=== PATIENT | female | born 1995 | race Caucasian/White ===

== ENCOUNTER 2017-02-15 19:30 | Inpatient (IN) | payer BC, OTHER ==
[2017-02-16] MEDS ORDERED: LIDOCAINE HCL 50 ML VIAL PERI PRN (01:56)
[2017-02-16] MEDS ORDERED: RINGER'S SOLUTION,LACTATED 1,000 ML IV ONE (01:56)
[2017-02-16] MEDS: DEXTROSE 5%-LACTATED RINGERS 1,000 ML IV PRN ×2 (04:14→09:24)
[2017-02-16] MEDS ORDERED: BUPIVACAINE HCL/0.9 % NACL/PF 250 ML EP PRN (05:09)
[2017-02-16] MEDS ORDERED: ONDANSETRON HCL/PF 2 MG/ML VIAL IV PRN (05:09)
[2017-02-16] MEDS ORDERED: NALOXONE HCL 1 MG/1 ML SYRG IV PRN (05:09)
[2017-02-16] MEDS ORDERED: BUPIVACAINE HCL/PF 30 ML VIAL EP SCH (05:15)
[2017-02-16] MEDS ORDERED: fentaNYL CITRATE/PF 50 MCG/ML AMPUL IT SCH (05:15)
--- NOTE | 2017-02-16 05:52 | OR ---
Anesthesia Pre Procedure Eval Date of Service: 02/16/17 Pre Procedure Evaluation: Anesthesia Pre Procedure Evaluation Heart Rate: 88 Blood Pressure: 120/68 Temperature: 37.1 Respiratory Rate: 20 SaO2:97 DATE: 02/16/2017 TIME: 1744 INDICATIONS: Active labor, labor pain PAST MEDICAL HISTORY: Primipara and active labor requesting labor analgesia History of GERD: No History of smoking: No History of sleep apnea: No EXAM: Heart regular; lungs clear ASSESSMENT OF MEDICAL STATUS: Appropriate candidate for labor analgesia PLANNED PROCEDURE: Combination spinal epidural for labor analgesia Home Medications: HOME MEDICATIONS Vits96/Iron Fum/Folic [ S] 1 tab PO DAILY 10/11/16 [Last Taken 01/07/17]
--- NOTE | 2017-02-16 06:16 | OR ---
Anesthesia Procedure Note - Anesthesia Procedure Note Date of Service: 02/16/17 Narrative: 02/16/17 06:13 ANESTHESIA PROCEDURE NOTE Date of Procedure: 02/16/2017 Time of procedure: 5:45 AM . Performed by: BENNY Portillo CRNA, MSN Incising Machine Operator: Nasreen López RN. Preprocedure diagnosis: Active labor, labor pain. Post procedure diagnosis: Same. Procedure:Epidural for labor analgesia L3 4. Indications: Labor pain. Findings: See below. Details of the procedure: The patient was placed on the side of the bed in sitting positionand prepped with DuraPrep then draped in a sterile fashion. Lidocaine 1% was infiltrated to the skin and subcutaneous tissues at the level of the L3 4 interspace. An 18-gauge Touhy needle was used to approach the epidural space with loss of resistance technique. Once loss of resistance was achieved a 24-gauge Pencan needle was passed through the epidural needle and CSF was contacted. After CSF returned fentanyl 20 mcg of fentanyl was injected in the spinal needle was removed the epidural catheter was then threaded approximately 4 cm in the epidural needle was removed. The catheter was taped in place and after careful aspiration 3 mL of 1.5% lidocaine with 1-200,000 epinephrine was injected without change in maternal heart rate or sensorium. . EBL: Minimal. Fluids: N/A. Specimen: N/A. Post procedure condition: The patient tolerated the procedure well with good relief. No complications were noted. Thank you for this consultation. Hernán Paulino CRNA, ARNP, MSN
[2017-02-16] MEDS ORDERED: OXYTOCIN/DEXTROSE 5%-WATER 30 UNITS/500 ML BAG IV ONE ×2 (08:31→14:19)
[2017-02-16] MEDS ORDERED: MISOPROSTOL 100 MCG TABLET RC ONE (12:48)
[2017-02-16] MEDS ORDERED: BISACODYL 10 MG SUPP.RECT RC PRN (14:19)
[2017-02-16] MEDS ORDERED: BENZOCAINE/MENTHOL 81 SPRAY CAN TP PRN (14:19)
[2017-02-16] MEDS ORDERED: GLYCERIN/WITCH HAZEL LEAF 40 APPL BOX TP PRN (14:19)
[2017-02-16] MEDS ORDERED: SENNOSIDES 8.6 MG TABLET PO PRN (14:19)
[2017-02-16] MEDS ORDERED: oxyCODONE HCL/ACETAMINOPHEN 1 TAB TABLET PO PRN (14:19)
[2017-02-16] MEDS ORDERED: HYDROCORTISONE 30 APPL TUBE TP PRN (14:19)
--- NOTE | 2017-02-16 14:23 | OR ---
Operative Report - Dictated Report Narrative: Spontaneous vaginal delivery of viable female 's 1221 on 02/16/2017 with Apgars 9 and 9, weighing 3614 g in ASTON position. Tight nuchal cord 1. Cord clamping delayed approximately 1 minute Placenta delivered complete, intact, with three vessel cord Estimated blood loss: 300 mL due to uterine atony which responded to Pitocin 30 mU/m and Cytotec 400 g rectally 1. Lacerations: Second-degree vaginal laceration (5cm) repaired with 0 Vicryl and 3 -0 Vicryl Rapide. Significant bruising of the upper vagina just inside the introitus including the bladder and periurethral regions. Small arterial bleeder noted on the left perineal body during repair. Hemostasis was assured at the time of closure. History for MU Definition: * The number of deliveries resulting in a live the patient experienced prior to current hospitalization * The previous delivery of live twins or any live multiple gestation is considered one live event. *If primagravida or nulliparous is documented select zero for the number of previous live births. Live Events: 0
[2017-02-16] MEDS: IBUPROFEN 800 MG TABLET PO PRN ×2 (14:34→22:58)
[2017-02-16] MEDS: oxyCODONE HCL/ACETAMINOPHEN 1 TAB TABLET PO PRN (14:35)
[2017-02-16 22:12] LABS: Hematocrit 25.8 % (37.0-47.0); Hemoglobin 8.8 gm/dL (12.5-16.0); Mean Cell Volume 86.9 fl (78-100); Mean Corpuscular Hemoglobin 29.6 pg (27-31); Mean Corpuscular Hgb Conc 34.1 g/dl (32-36); Mean Platelet Volume 10.2 fl (6.0-9.5); Platelet Count 183 K/mm3 (150-450); Red Blood Count 2.97 M/mm3 (4.2-5.4); Red Cell Distribution Width 13.8 % (11.5-14.0); White Blood Count 24.6 K/mm3 (4.0-10.5)
[2017-02-16 22:14] LABS: Total Cells Counted 100
[2017-02-16] MEDS: DOCUSATE SODIUM 100 MG CAPSULE PO SCH (22:29)
[2017-02-16 22:40] LABS: Lymphocyte 5 % (20-51); Monocyte 8 % (0-9); Neutrophil 87 % (42-75); Neutrophil # 21.4 K/mm3 (1.3-6.0); Platelet Estimate Normal (NORMAL)
[2017-02-16 22:41] LABS: RBC Morphology Normal (NORMAL)
[2017-02-17] MEDS: IBUPROFEN 800 MG TABLET PO PRN ×2 (09:30→18:42)
[2017-02-17] MEDS: DOCUSATE SODIUM 100 MG CAPSULE PO SCH ×2 (09:30→21:44)
--- NOTE | 2017-02-17 17:45 | PN ---
Subjective - Date and Time Seen Date: 02/17/17 Time: 17:44 Objective - Vitals Vitals: Last Vital Signs Temp 37.1 C 02/17/17 13:00 Pulse 70 02/17/17 13:00 Resp 18 02/17/17 13:00 BP 110/65 02/17/17 13:00 Pulse Ox 98 02/17/17 13:00 Patient denies complaints. Lochia wnl Abdomen - soft, nontender Uterus - firm, at umbilicus - 1 No calf tenderness Impression: day #1 - s/p spontaneous vaginal delivery. Plan: Continue routine care - Abnormal Lab Findings Abnormal Lab Findings: Abnormal Lab Results 02/16/17 Range/Units 22:05 WBC 24.6 H (4.0-10.5) K/mm3 RBC 2.97 L (4.2-5.4) M/mm3 Hgb 8.8 L (12.5-16.0) gm/dL Hct 25.8 L (37.0-47.0) % MPV 10.2 H (6.0-9.5) fl Neutrophils % (Manual) 87 H (42-75) % Lymphocytes % (Manual) 5 L (20-51) % Neutrophils # (Manual) 21.4 H (1.3-6.0) K/mm3 Lymphocytes # (Manual) 1.2 L (1.5-3.5) k/mm3 Monocytes # (Manual) 2.0 H (0.0-1.0) k/mm3 Cauti Physician Documentation - Urinary Catheter Management Urethral (Martins) Date of Insertion: 02/16/17 Time of Insertion: 07:10 Date of Removal: 02/16/17 Time of Removal: 11:45
[2017-02-17] MEDS: oxyCODONE HCL/ACETAMINOPHEN 1 TAB TABLET PO PRN ×2 (21:45→21:46)
[2017-02-18 07:12] VITALS: BP 125/62
--- NOTE | 2017-02-18 08:03 | PN ---
Subjective - Date and Time Seen Date: 02/18/17 Time: 08:03 Objective - Vitals Vitals: Last Vital Signs Temp 36.4 C L 02/18/17 07:06 Pulse 91 02/18/17 07:06 Resp 18 02/18/17 07:06 BP 125/62 02/18/17 07:06 Pulse Ox 100 02/18/17 07:06 Patient denies complaints. Lochia wnl Abdomen - soft, nontender Uterus - firm, at umbilicus - 2 No calf tenderness Impression: day #2 - s/p spontaneous vaginal delivery. Plan: Routine discharge instructions Cauti Physician Documentation - Urinary Catheter Management Urethral (Martins) Date of Insertion: 02/16/17 Time of Insertion: 07:10 Date of Removal: 02/16/17 Time of Removal: 11:45
[2017-02-18] MEDS: DOCUSATE SODIUM 100 MG CAPSULE PO SCH (08:52)
[2017-02-18] MEDS: oxyCODONE HCL/ACETAMINOPHEN 1 TAB TABLET PO PRN (10:13)
[2017-02-18] MEDS: IBUPROFEN 800 MG TABLET PO PRN (10:13)
== END 2017-02-18 15:40 | disposition home or self-care (01) | DRG 774 ==
LOC: OBCLINIC 19:30 → OB 21:21
PROVIDERS: ADMIT Obstetrics & Gynecology; ATTEND Obstetrics & Gynecology
PROC: 10E0XZZ Delivery of Products of Conception, External Approach (ICD-10-PCS; principal; 2017-02-16)
PROC: 0KQM0ZZ Repair Perineum Muscle, Open Approach (ICD-10-PCS; 2017-02-16)
PROC: 4A1HXCZ Monitoring of Products of Conception, Cardiac Rate, External Approach (ICD-10-PCS; 2017-02-16)
PROC: 00HU33Z Insertion of Infusion Device into Spinal Canal, Percutaneous Approach (ICD-10-PCS; 2017-02-16)
DX: O69.1XX0 Labor and delivery complicated by cord around neck, with compression, not applicable or unspecified (principal); O72.1 Other immediate postpartum hemorrhage; O70.1 Second degree perineal laceration during delivery; Z3A.39 39 weeks gestation of pregnancy; Z37.0 Single live birth
CPT/HCPCS: 36415; 59025; 85007; 85025; 86850; 86900; J2405

== ENCOUNTER 2018-07-19 20:29 | Observation (INO) ==
[2018-07-19] MEDS ORDERED: TERBUTALINE SULFATE 1 MG/ML VIAL SC ONE (22:42)
[2018-07-19] MEDS ORDERED: BETAMETHASONE ACETATE,SOD PHOS 6 MG/ML VIAL IM ONE (22:42)
[2018-07-20] MEDS ORDERED: ONDANSETRON 4 MG TAB.RAPDIS PO ONE (00:22)
[2018-07-20] MEDS ORDERED: RINGER'S SOLUTION,LACTATED 1,000 ML IV ONE (00:23)
[2018-07-20] MEDS ORDERED: DEXTROSE 5%-LACTATED RINGERS 1,000 ML IV PRN (00:55)
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
[2018-07-20 01:41] LABS: Hematocrit 33.4 % (37.0-47.0); Hemoglobin 11.1 gm/dL (12.5-16.0); Mean Cell Volume 86.8 fl (78-100); Mean Corpuscular Hemoglobin 28.8 pg (27-31); Mean Corpuscular Hgb Conc 33.2 g/dl (32-36); Mean Platelet Volume 10.3 fl (8-12.5); Neutrophil # 14.3 K/mm3 (1.3-6.0); Neutrophil % 89.5 % (42-75.0); Platelet Count 145 K/mm3 (150-450); Red Blood Count 3.85 M/mm3 (4.2-5.4); Red Cell Distribution Width 13.1 % (11.5-14.0); White Blood Count 15.9 K/mm3 (4.0-10.5)
[2018-07-20 03:00] LABS: Urine Bilirubin Negative (NEGATIVE); Urine Blood Negative /ul (NEGATIVE); Urine Ketone 15 mg/dL (NEGATIVE); Urine Nitrite Negative (NEGATIVE); Urine Protein Negative (NEGATIVE); Urine Urobilinogen Normal (NORMAL); Urine pH 6.5 pH (5.0-7.0)
[2018-07-20 03:22] LABS: Urine Appearance Clear (CLEAR); Urine Color Yellow
[2018-07-20 03:23] LABS: Urine Bacteria None Seen; Urine RBC None Seen /hpf (0-5); Urine WBC None Seen /hpf (0-5)
--- NOTE | 2018-07-20 07:36 | PN ---
Subjective - Date and Time Seen Date: 07/20/18 Time: 07:14 Subjective Narrative: Rating contractions . Denies N/V, vaginal bleeding/d/c or abdominal pain/tenderness Objective - Review of Systems Generalized/Overall Review: Reports: No Symptoms Reported Respiratory: Reports: No Symptoms Reported Cardiac: Reports: No Symptoms Reported Abdominal: Reports: Other - contractions Genitourinary Symptoms: Reports: No Symptoms Reported Musculoskeletal Complaints: Reports: No Symptoms Reported Neurological: Reports: No Symptoms Reported Skin: Reports: No Symptoms Reported Endocrine: Reports: No Symptoms Reported - Vitals Vitals: Last Vital Signs Temp 36.5 C 07/19/18 22:45 Pulse 110 H 07/19/18 22:45 Resp 18 07/19/18 22:45 BP 106/60 07/19/18 22:45 Pulse Ox 100 07/19/18 22:45 - Abnormal Lab Findings Abnormal Lab Findings: Abnormal Lab Results 07/20/18 Range/Units 01:40 WBC 15.9 H (4.0-10.5) K/mm3 RBC 3.85 L (4.2-5.4) M/mm3 Hgb 11.1 L (12.5-16.0) gm/dL Hct 33.4 L (37.0-47.0) % Plt Count 145 L (150-450) K/mm3 Immature Gran % (Auto) 1.30 H (0.001-0.429) % Immature Gran # (Auto) 0.21 H (0.000-0.0310) K/mm3 Neutrophils % 89.5 H (42-75.0) % Lymphocytes % 6.5 L (20-51) % Neutrophils # 14.3 H (1.3-6.0) K/mm3 Lymphocytes # 1.03 L (1.5-3.5) k/mm3 - Exam Exam Narrative: Bedside ultrasound - cephalic NST reactive FHT 145 Ctxs q5 min Constitutional: Present: Alert, Oriented x3, Cooperative ENT Exam: Present: hearing grossly normal Breasts: Present: Exam deferred Respiratory: Present: no respiratory distress Cardiovascular/Chest: Present: regular rate, rhythm Abdomen: Present: soft, nontender, no rebound tenderness, other - gravid /Rectal: Present: Other - cervix at 0400 with no change (2/60/-3) Assessment/Plan Plan Narrative: Will increase activity and if patient remains stable will discharge home after 2nd betamethasone injection. - Problems/Diagnosis (1) labor Problem: Acute Qualifiers: labor trimester: third trimester labor delivery status: without delivery Qualified Code(s): O60.03 - labor without delivery, third trimester (2) Blunt trauma to abdomen Problem: Acute Qualifiers: Encounter type: initial encounter Qualified Code(s): S39.91XA - Unspecified injury of abdomen, initial encounter (3) At high risk for maternal or injury Problem: Acute
[2018-07-20 19:16] VITALS: BP 134/65
[2018-07-20] MEDS ORDERED: BETAMETHASONE ACETATE,SOD PHOS 6 MG/ML VIAL IM ONE ×2 (20:00→22:00)
--- NOTE | 2018-07-25 16:55 | DS ---
(1) labor Problem: Acute Qualifiers: labor trimester: third trimester labor delivery status: without delivery Qualified Code(s): O60.03 - labor without delivery, third trimester (2) Blunt trauma to abdomen Problem: Acute Qualifiers: Encounter type: initial encounter Qualified Code(s): S39.91XA - Unspecified injury of abdomen, initial encounter (3) At high risk for maternal or injury Problem: Acute Description of Stay: 23 yo at 33 4/7 weeks admitted for 23 hour observation due to labor and recent blunt abdominal trauma. She made minor cervical change (1 to 2 cm) which responded to IV hydration and subcutaneous terbutaline. After several hours of observation and a course of steroids for lung maturity, she was discharged to home with abruption and labor precautions. Procedures Performed: see notes below - NST, continuous and toco monitoring, limited OB ultrasound, IV hydration Results and Findings: Lab Pending Results 07/20/18 01:40: WBC 15.9 H, RBC 3.85 L, Hgb 11.1 L, Hct 33.4 L, MCV 86.8, MCH 28.8, MCHC 33.2, RDW 13.1, Plt Count 145 L, MPV 10.3, Immature Gran % (Auto) 1.30 H, Immature Gran # (Auto) 0.21 H, Neutrophils % 89.5 H, Lymphocytes % 6.5 L, Monocytes % 2.4, Eosinophils % 0.0, Basophils % 0.3, Nucleated RBC % 0.0, Neutrophils # 14.3 H, Lymphocytes # 1.03 L, Monocytes # 0.4, Eosinophils # 0.0, Absolute Basophils 0.0 07/20/18 03:00: Urine Color Yellow, Urine Appearance Clear, Urine pH 6.5, Ur Specific [place] 1.010, Urine Protein Negative, Urine Glucose (UA) Negative, Urine Ketones 15, Urine Blood Negative, Urine Nitrate Negative, Urine Bilirubin Negative, Urine Urobilinogen Normal, Ur Leukocyte Esterase Negative, Urine RBC None seen, Urine WBC None seen, Ur Epithelial Cells Trace, Urine Bacteria None seen Discharge Location: Home Disposition: Home self-care Condition: Good Discharge Activity: No Lifting - No heavy lifting or strenous activity for 1 week, Other - No sexual activity for 1 week Discharge Diet: General/regular food Problem Oriented Discharge Instructions to Patient/Family: Henrique Reyez Contractions, Labor Information, [id number], Abdominal Pain During Complete Home Medications List: Complete Home Medication List: Vits96/Iron Fum/Folic [ S] 1 tab PO DAILY 10/11/16 oxymetazoline 0.05 % nasal spray 1 spray RALPH BID ml 01/28/18 docusate sodium 100 mg capsule 100 mg PO DAILY 02/26/18 breast pump See Dose Instructions .ROUTE .MEDSUPPLY #1 ea 05/07/18
== END 2018-07-20 20:10 | disposition home or self-care (01) ==
LOC: OB 20:29 → OBCLINIC 20:29
PROVIDERS: ADMIT Obstetrics & Gynecology; ATTEND Obstetrics & Gynecology
DX: O60.03 Preterm labor without delivery, third trimester; O71.89 Other specified obstetric trauma; Z3A.33 33 weeks gestation of pregnancy; S39.91XA Unspecified injury of abdomen, initial encounter
CPT/HCPCS: 36415; 59025; 81001; 85025; 96361; 96372; G0378

== ENCOUNTER 2018-08-26 14:59 | Inpatient (IN) ==
[2018-08-26] MEDS ORDERED: RINGER'S SOLUTION,LACTATED 1,000 ML IV ONE (15:03)
[2018-08-26] MEDS ORDERED: OXYTOCIN/DEXTROSE 5%-WATER 30 UNITS/500 ML BAG IV ONE ×2 (15:03→18:04)
[2018-08-26] MEDS ORDERED: ONDANSETRON HCL/PF 2 MG/ML VIAL IV PRN ×2 (15:03→16:03)
[2018-08-26] MEDS ORDERED: RINGER'S SOLUTION,LACTATED 1,000 ML IV PRN (15:03)
--- NOTE | 2018-08-26 15:13 | HP ---
Chief Complaint - Chief Complaint Date of Service: 08/26/18 Time of Service: 15:05 Chief Complaint: contractions History of Present Illness: 23 yo at 38 6/7 weeks presents with complaint of contractions of increasing intensity and frequency. This complicated by maternal fall/trauma in early 3rd trimester. Rh positive Rubella immune GBS negative Medical History (Last Reviewed 08/26/18 @ 15:09 by Doug Cantu DO) Nonallopathic lesion of lumbar region (Acute) Nonallopathic lesion of pelvic region (Acute) Ankle fracture, left Onset Date: Unknown Chronic constipation Onset Date: Unknown Uterine atony Onset Date: 02/16/17 w/ cytotec Surgical History: Surgical History (Last Reviewed 08/26/18 @ 15:09 by Doug Cantu DO) History of ankle surgery Onset Date: ~08/2017 x3 surgeries Family History: Family History (Last Reviewed 08/26/18 @ 15:09 by Doug Cantu DO) Grandmother Diabetes Maternal Grandmother Family/Other Diabetes Cousin Mother Cancer Uterine Brother Septal defect Social History: Preferred Language [place] Smoking Status Never smoker (Last Updated 08/26/18 @ 09:34 by Doug Cantu DO) No Social History Section defined Review Of Systems (GEN) - Review of Systems Generalized/Overall Review: Present: No Symptoms Reported EENTM: Present: No Symptoms Reported Respiratory: Present: No Symptoms Reported Cardiac: Present: No Symptoms Reported Abdominal: Present: Other - contractions Genitourinary: Present: Other - vaginal pressure Musculoskeletal: Present: Back Pain Neurological: Present: No Symptoms Reported Skin: Present: No Symptoms Reported Endocrine: Present: No Symptoms Reported Allergies/Adverse Reactions: Allergies Allergy/AdvReac Type Severity Reaction Status Date / Time influenza virus vaccine qs Allergy Hives Verified 08/26/18 08:56 [id number] (36 mos, up) [From Fluarix Quad] metronidazole [From Flagyl] Allergy Hives Verified 08/26/18 08:56 Penicillins AdvReac Verified 08/26/18 08:56 Home Medications: HOME MEDICATIONS Vits96/Iron Fum/Folic [ S] 1 tab PO DAILY 10/11/16 [Last Taken 07/18/18] oxymetazoline 0.05 % nasal spray 1 spray RALPH BID ml 01/28/18 [Last Taken 01/18/19] docusate sodium 100 mg capsule 100 mg PO DAILY 02/26/18 [Last Taken Unknown] breast pump See Dose Instructions .ROUTE .MEDSUPPLY #1 ea 05/07/18 [Last Taken Unknown] Exam - Exam Constitutional: Present: Alert, Oriented x3, Cooperative, Mild distress ENT Exam: Present: hearing grossly normal Breasts: Present: Exam deferred Respiratory: Present: lungs clear, no respiratory distress Cardiovascular/Chest: Present: regular rate, rhythm, no edema Abdomen: Present: soft, nontender, no rebound tenderness, other - gravid /Rectal: Present: Other - cervix 5/90/-1 Extremity: Present: no pedal edema, no calf tenderness Skin Exam: Present: normal color, warm/dry, no cyanosis Neurologic: Present: oriented x 3 Appearance: Present: appropriate appearance, other - blunted/flattened affect Eye contact: Present: cooperative, good eye contact Thoughts: Present: normal thought pattern Diagnostic Studies: NST reactive. Contractions q 3-4 min Assessment/Plan - Assessment/Plan (1) Labor established Assessment: Admit for routine management of labor. Epidural PRN. Problem: Acute
[2018-08-26] MEDS ORDERED: BUPIVACAINE HCL/0.9 % NACL/PF 250 ML EP PRN (16:03)
[2018-08-26] MEDS ORDERED: NALOXONE HCL 1 MG/1 ML SYRG IV PRN (16:03)
--- NOTE | 2018-08-26 16:04 | ANES ---
Anesthesia Pre Procedure Eval Vitals/Labs: Last Vital Signs Temp 36.1 C 08/26/18 15:30 Pulse 98 08/26/18 15:30 Resp 18 08/26/18 15:30 BP 128/73 08/26/18 15:30 Pulse Ox 100 08/26/18 15:30 HOME MEDICATIONS Vits96/Iron Fum/Folic [ S] 1 tab PO DAILY 10/11/16 [Last Taken 07/18/18] oxymetazoline 0.05 % nasal spray 1 spray RALPH BID ml 01/28/18 [Last Taken 07/12/18] docusate sodium 100 mg capsule 100 mg PO DAILY 02/26/18 [Last Taken Unknown] breast pump See Dose Instructions .ROUTE .MEDSUPPLY #1 ea 05/07/18 [Last Taken Unknown] Allergies/Adverse Reactions: Allergies Allergy/AdvReac Type Severity Reaction Status Date / Time influenza virus vaccine qs Allergy Hives Verified 08/26/18 15:16 [id number] (36 mos, up) [From Fluarix Quad] metronidazole [From Flagyl] Allergy Hives Verified 08/26/18 15:16 Penicillins AdvReac Verified 08/26/18 15:16 - Planned Procedure Planned Procedure: ACTIVE LABOR Medication List Reviewed:: Yes Allergies Verified: Yes Medical History (Last Reviewed 08/26/18 @ 16:03 by Hernán Paulino CRNA) Nonallopathic lesion of lumbar region (Acute) Nonallopathic lesion of pelvic region (Acute) Ankle fracture, left Onset Date: Unknown Chronic constipation Onset Date: Unknown Uterine atony Onset Date: 02/16/17 w/ cytotec Surgical History (Last Reviewed 08/26/18 @ 16:03 by Hernán Paulino CRNA) History of ankle surgery Onset Date: ~08/2017 x3 surgeries Family History (Last Reviewed 08/26/18 @ 16:03 by Hernán Paulino CRNA) Grandmother Diabetes Maternal Grandmother Family/Other Diabetes Cousin Mother Cancer Uterine Brother Septal defect - Family Anesthesia History Family History:: no untoward family reactions to anesthesia, no familial bleeding tendencies, no family history of clotting disorders, no family history of premature - Airway/Neck/Teeth Within Normal Limits:: Yes Teeth Condition: intact Neck Exam: full range of motion Mallampatti Score: 2 Thyromental (T-M) distance: > 6 cm Mandibulo Hyoid distance: > 3 cm - Respiratory Respiratory Physical: lungs clear Smoking Status: Never smoker Sleep Apnea currently treated: No Sleep Apnea by current assessment: No - Cardiovascular Tolerate Activity: Fair Heart Sounds: S1 & S2, Regular - Anesthesia Assessment and Plan ASA Class: PS, II, E Anesthesia Type Plan: Epidural - CSE for labor analgesia
[2018-08-26] MEDS ORDERED: LIDOCAINE HCL/EPINEPHRINE 10 ML VIAL IJ ONE (16:06)
[2018-08-26] MEDS: fentaNYL CITRATE/PF 50 MCG/ML AMPUL IT SCH ×2 (16:30→17:07)
--- NOTE | 2018-08-26 16:31 | ANES ---
Anesthesia Procedure Note Procedure Note: ANESTHESIA PROCEDURE NOTE Date of Procedure: 08/26/2018 Time of procedure: 1610. Performed by: Hernán Paulino CRNA, MSN Kitchen Hand: Roseann Pimentel RN. Preprocedure diagnosis: Active labor, labor pain. Post procedure diagnosis: Same. Procedure:Epidural for labor analgesia L3 4. Indications: Labor pain. Findings: See below. Details of the procedure: The patient was placed on the side of the bed in sitting positionand prepped with DuraPrep then draped in a sterile fashion. Lidocaine 1% was infiltrated to the skin and subcutaneous tissues at the level of the L3 4 interspace. An 18-gauge Touhy needle was used to approach the epidural space with loss of resistance technique. Once loss of resistance was achieved a 27-gauge spinal needle was passed through the epidural needle and CSF was contacted. After CSF returned, 20 mcg of fentanyl was injected in the spinal needle was removed the epidural catheter was then threaded approximately 4 cm in the epidural needle was removed. The catheter was taped in place and after careful aspiration 3 mL of 2% lidocaine with 1-200,000 epinephrine was injected without change in maternal heart rate or sensorium. . EBL: Minimal. Fluids: N/A. Specimen: N/A. Post procedure condition: The patient tolerated the procedure well with good relief. No complications were noted. Thank you for this consultation. Hernán Paulino CRNA, MSN
--- NOTE | 2018-08-26 16:31 | ANES ---
Post Anesthesia Discharge - Transfer of Care Transfer of Care handoff given to nurse: Yes - Discharge from PACU Discharge from PACU when meets criteria: Yes - comfortableafter CSE
--- NOTE | 2018-08-26 16:43 | ANES ---
Post Anesthesia Assessment - Vital Signs Vitals: Last Vital Signs Temp 36.1 C 08/26/18 15:30 Pulse 98 08/26/18 15:30 Resp 18 08/26/18 15:30 BP 128/73 08/26/18 15:30 Pulse Ox 100 08/26/18 15:30 Airway Patency: Normal - Mental Status Level Of Consciousness: Awake, Alert, Appropriate - Pain Level Pain Score: 0 - N/V Assessment Nausea/Vomiting Presence: None Dehydration:: No
[2018-08-26] MEDS ORDERED: LIDOCAINE HCL 50 ML VIAL ONE (17:34)
[2018-08-26] MEDS ORDERED: LIDOCAINE HCL 50 ML VIAL IJ ONE (17:42)
--- NOTE | 2018-08-26 18:02 | PN ---
Progess Note - Interim Date: 08/26/18 Time: 18:02 History for MU Definition: * The number of deliveries resulting in a live the patient experienced prior to current hospitalization * The previous delivery of live twins or any live multiple gestation is considered one live event. *If primagravida or nulliparous is documented select zero for the number of previous live births. Live Events: 1
--- NOTE | 2018-08-26 18:02 | OR ---
Operative Report - Dictated Report Narrative: Spontaneous vaginal delivery of a vigorously crying viable male at 1729 on 08/26/2018 with Apgars 9 and 9, weighing 2725 g in ASTON position. Cord clamping delayed approximately 1 minute Placenta delivered complete, intact, with three vessel cord Estimated blood loss: Approximately 100 mL Anesthesia: Epidural and 1% lidocaine epinephrine Lacerations: First-degree vaginal/labial laceration repaired with 3-0 Vicryl Rapide.
[2018-08-26] MEDS ORDERED: BENZOCAINE/MENTHOL 81 SPRAY CAN TP PRN (18:04)
[2018-08-26] MEDS ORDERED: GLYCERIN/WITCH HAZEL LEAF 40 APPL BOX TP PRN (18:04)
[2018-08-26] MEDS ORDERED: oxyCODONE HCL/ACETAMINOPHEN 1 TAB TABLET PO PRN (18:04)
[2018-08-26] MEDS ORDERED: SENNOSIDES 8.6 MG TABLET PO PRN (18:04)
[2018-08-26] MEDS ORDERED: HYDROCORTISONE 30 APPL TUBE TP PRN (18:04)
[2018-08-26] MEDS ORDERED: BISACODYL 10 MG SUPP.RECT RC PRN (18:04)
[2018-08-26] MEDS: IBUPROFEN 800 MG TABLET PO PRN (18:33)
[2018-08-26] MEDS: oxyCODONE HCL/ACETAMINOPHEN 1 TAB TABLET PO PRN ×2 (19:25→22:39)
[2018-08-26] MEDS: DOCUSATE SODIUM 100 MG CAPSULE PO SCH (22:39)
[2018-08-27] MEDS: IBUPROFEN 800 MG TABLET PO PRN ×2 (03:46→13:46)
[2018-08-27] MEDS ORDERED: DOCUSATE SODIUM 100 MG CAPSULE PO SCH (09:00)
--- NOTE | 2018-08-27 09:27 | PN ---
Subjective - Date and Time Seen Date: 08/27/18 Time: 09:27 Objective - Vitals Vitals: Last Vital Signs Temp 36.7 C 08/27/18 07:08 Pulse 100 08/27/18 07:08 Resp 16 08/27/18 07:08 BP 105/58 08/27/18 07:08 Pulse Ox 99 08/27/18 07:08 Patient denies complaints. Lochia wnl Abdomen - soft, nontender Uterus - firm, at umbilicus - 1 No calf tenderness Impression: day #1 - s/p spontaneous vaginal delivery. Plan: Continue routine care Cauti Physician Documentation - Urinary Catheter Management Urethral (Martins) Date of Insertion: 08/26/18 Time of Insertion: 16:30 Assessment/Plan - Problems/Diagnosis (1) Labor established Problem: Acute
[2018-08-27] MEDS: DOCUSATE SODIUM 100 MG CAPSULE PO SCH ×2 (12:07→22:37)
[2018-08-27] MEDS: PRENATAL VITS96/IRON FUM/FOLIC 1 TAB TABLET PO SCH (12:08)
[2018-08-27] MEDS: oxyCODONE HCL/ACETAMINOPHEN 1 TAB TABLET PO PRN (19:34)
[2018-08-28] MEDS: IBUPROFEN 800 MG TABLET PO PRN (07:10)
[2018-08-28 08:17] VITALS: BP 107/57
[2018-08-28] MEDS: PRENATAL VITS96/IRON FUM/FOLIC 1 TAB TABLET PO SCH (08:33)
[2018-08-28] MEDS: DOCUSATE SODIUM 100 MG CAPSULE PO SCH (08:33)
--- NOTE | 2018-08-28 09:01 | PN ---
Subjective - Date and Time Seen Date: 08/28/18 Time: 09:00 Objective - Vitals Vitals: Last Vital Signs Temp 36.8 C 08/28/18 08:14 Pulse 92 08/28/18 08:14 Resp 16 08/28/18 08:14 BP 107/57 08/28/18 08:14 Pulse Ox 100 08/28/18 08:14 Patient denies complaints. Breast-feeding well Lochia wnl Abdomen - soft, nontender Uterus - firm, at umbilicus - 2 No calf tenderness Impression: day #2 - s/p spontaneous vaginal delivery. Plan: Routine discharge instructions Cauti Physician Documentation - Urinary Catheter Management Urethral ([facility]ins) Date of Insertion: 08/26/18 Time of Insertion: 16:30 Assessment/Plan - Problems/Diagnosis (1) Labor established Problem: Acute
== END 2018-08-28 12:10 | disposition home or self-care (01) | DRG 807 ==
LOC: OB 14:59
PROVIDERS: ADMIT Obstetrics & Gynecology; ATTEND Obstetrics & Gynecology
CPT/HCPCS: 59025